=== PATIENT | female | born 1990 | race Caucasian/White ===

== ENCOUNTER 2020-11-15 08:09 | Inpatient (IN) ==
[2020-11-15] MEDS ORDERED: Metoclopramide 10 MG/2 ML VIAL IVP ONE (08:43)
[2020-11-15] MEDS ORDERED: CeFAZolin 2,000 MG/50 ML BAG IVPB ONE (08:43)
[2020-11-15] MEDS ORDERED: Famotidine 20 MG/2 ML VIAL IVP ONE (08:43)
[2020-11-15] MEDS ORDERED: Ringers Solution, Lactated 1,000 ML IVC SCH (08:45)
[2020-11-15] MEDS: Ringers Solution, Lactated 1,000 ML IVC ONE ×2 (09:03→09:42)
[2020-11-15 09:14] LABS: Basophils % 0.2 %; Eosinophils # 0.1 K/mcL (0.0-0.6); Eosinophils % 0.8 %; Hematocrit 35.4 % (35.3-44.9); Immature Granulocytes % 0.8 % (0-4); Lymphocytes # 2.3 K/mcL (0.6-4.6); Lymphocytes % 17.3 %; Mean Corpuscular HGB Conc 31.1 g/dL (31.6-35.5); Mean Platelet Volume 9.9 fL (9.4-12.4); Monocytes # 0.8 K/mcL (0.0-1.3); Monocytes % 5.6 %; Platelet Count 356 K/mcL (140-400); Red Blood Count 4.07 M/mcL (3.82-4.97); Red Cell Distribution Width 13.1 % (11.5-14.5); Segmented Neutrophils % 75.3 %; White Blood Count 13.3 K/mcL (4.3-11.1)
[2020-11-15] MEDS ORDERED: *HR* Phenylephrine 10 MG/ML VIAL ONE (09:38)
[2020-11-15] MEDS ORDERED: *HR* FentaNYL (PF) 100 MCG/2 ML VIAL ONE (09:39)
[2020-11-15] MEDS ORDERED: *HR* Morphine Sulfate/PF 10 MG/10 ML AMPUL ONE (09:39)
[2020-11-15] MEDS ORDERED: *HR* Meperidine 25 MG/ML SYRINGE IVP PRN (10:40)
[2020-11-15] MEDS ORDERED: *HR* FentaNYL (PF) 100 MCG/2 ML VIAL IVP PRN (10:40)
[2020-11-15] MEDS ORDERED: Naloxone 0.4 MG/ML INJ IVP PRN ×2 (10:40→14:58)
[2020-11-15] MEDS ORDERED: Ondansetron 4 MG/2 ML VIAL IVP PRN ×2 (10:40→14:58)
[2020-11-15] MEDS ORDERED: Promethazine 6.25 MG in Water for inj. (sterile) 20 ML IVPB PRN (10:40)
[2020-11-15] MEDS ORDERED: Acetaminophen IV 1,000 MG/100 ML BAG IVPB ONE (10:45)
[2020-11-15 11:59] LABS: Amphetamine Screen,Urine Negative ng/mL (Cutoff=1000); Barbiturate Screen,Urine Negative ng/mL (Cutoff=200); Benzodiazepines Screen,Urine Negative ng/mL (Cutoff=200); Cannabinoid Screen,Urine Negative ng/mL (Cutoff = 50); Cocaine Screen,Urine Negative ng/mL (Cutoff= 300); Opiate Screen,Urine Negative ng/mL (Cutoff=300); Phencyclidine Screen,Urine Negative ng/mL (Cutoff=25)
[2020-11-15] MEDS ORDERED: Sennosides 8.6 MG TABLET PO PRN (14:58)
[2020-11-15] MEDS ORDERED: Acetaminophen 325 MG TABLET PO PRN (14:58)
[2020-11-15] MEDS ORDERED: *HR* OxyCODONE Immed Rel 5 MG TABLET PO PRN (14:58)
[2020-11-15] MEDS ORDERED: Metoclopramide 10 MG/2 ML VIAL IVP PRN (14:58)
[2020-11-15] MEDS ORDERED: Oxytocin 20 units/ LR 1000 mL 20 UNIT/1,000 ML BAG IVC SCH ×2 (14:58)
[2020-11-15] MEDS: Ibuprofen 600 MG TABLET PO PRN ×2 (16:27→22:40)
[2020-11-15] MEDS: *HR* OxyCODONE/APAP 5/325 TABLET PO PRN (20:33)
[2020-11-15] MEDS: *HR* Enoxaparin 40 MG/0.4 ML SYRINGE SQ SCH (22:40)
[2020-11-16] MEDS: *HR* OxyCODONE/APAP 5/325 TABLET PO PRN ×5 (02:29→20:26)
[2020-11-16] MEDS: Ibuprofen 600 MG TABLET PO PRN ×3 (05:58→20:26)
[2020-11-16] MEDS: Prenatal Vit/FA 1 EACH TABLET PO SCH (07:53)
[2020-11-16] MEDS: Simethicone 80 MG TAB.CHEW PO PRN ×2 (13:49→20:59)
[2020-11-16 20:21] VITALS: BP 115/71
[2020-11-16] MEDS: *HR* Enoxaparin 40 MG/0.4 ML SYRINGE SQ SCH (20:26)
[2020-11-17] MEDS: *HR* OxyCODONE/APAP 5/325 TABLET PO PRN ×2 (01:08→06:59)
[2020-11-17] MEDS: Ibuprofen 600 MG TABLET PO PRN ×2 (02:57→08:52)
[2020-11-17] MEDS ORDERED: Lanolin 7 G OINT...G. TP PRN (08:50)
[2020-11-17] MEDS: Prenatal Vit/FA 1 EACH TABLET PO SCH (08:53)
[2020-11-17] MEDS: Simethicone 80 MG TAB.CHEW PO PRN (08:53)
== END 2020-11-17 12:34 | disposition home or self-care (01) | DRG 784 ==
LOC: 1NENULAB 08:09 → 1NENUOBS 13:30
PROVIDERS: ADMIT Obstetrics & Gynecology; ATTEND Obstetrics & Gynecology